=== PATIENT | male | born 1985 | race American Indian/Alaskan Native ===

== ENCOUNTER 2019-11-15 09:08 | Emergency (ER) | payer SELFPAY ==
[2019-11-15 09:29] VITALS: BP 148/81
[2019-11-15] MEDS ORDERED: LIDOCAINE (1%) 10 MG/1 ML VIAL 20 ML MDV INFILTRATI ONE (12:11)
--- NOTE | 2019-11-15 13:06 | Emergency Department Report ---
Abscess Boil HPI - HPI Chief Complaint: Skin/Abscess/Foreign Body Stated Complaint: RT ARM INSECT BITE Time Seen by Provider: 11/15/19 11:21 Duration: 4 Days Location: Upper Extremity Severity: Mild History: Yes Pain, Yes Purulent Drainage, Yes Insect Bite, No Fever, No Numbness, No Foreign Body, No Previous History HPI: 34-year-old -German male patient presents with complaints of right arm insect bite and swelling 4 days. He denies any fever. Has strain yellow pus. Home Medications: Previous Rx's Medication Instructions Recorded Last Taken Type Ibuprofen [Motrin] 600 mg PO Q6H PRN #20 tablet 01/24/14 Unknown Rx Cyclobenzaprine [Flexeril 10mg] 10 mg PO TID PRN #30 tablet 05/27/14 Unknown Rx Ibuprofen [Motrin] 800 mg PO Q8H #30 tablet 05/27/14 Unknown Rx traMADoL [Ultram 50 MG tab] 50 mg PO Q6HR PRN #20 tablet 05/27/14 Unknown Rx Mupirocin [Bactroban 2% OINT] 1 applic TP TID 8 Days #1 tube 11/15/19 Unknown Rx Sulfamethoxazole/Trimethoprim 1 each PO BID 10 Days #20 tablet 11/15/19 Unknown Rx [Bactrim DS TAB] Allergies/Adverse Reactions: Allergies Allergy/AdvReac Type Severity Reaction Status Date / Time No Known Allergies Allergy Unverified 04/09/14 12:07 ED Review of Systems ROS: Stated complaint: RT ARM INSECT BITE Other details as noted in HPI Comment: All other systems reviewed and negative Skin: as per HPI ED Past Medical Hx - Past Medical History Previous Medical History?: No - Surgical History Past Surgical History?: No - Social History Smoking Status: Never Smoker Substance Use Type: None - Medications Home Medications: Home Medications Medication Instructions Recorded Confirmed Last Taken Type Ibuprofen [Motrin] 600 mg PO Q6H PRN #20 tablet 01/24/14 Unknown Rx Cyclobenzaprine [Flexeril 10mg] 10 mg PO TID PRN #30 tablet 05/27/14 Unknown Rx Ibuprofen [Motrin] 800 mg PO Q8H #30 tablet 05/27/14 Unknown Rx traMADoL [Ultram 50 MG tab] 50 mg PO Q6HR PRN #20 tablet 05/27/14 Unknown Rx Mupirocin [Bactroban 2% OINT] 1 applic TP TID 8 Days #1 tube 11/15/19 Unknown Rx Sulfamethoxazole/Trimethoprim 1 each PO BID 10 Days #20 tablet 11/15/19 Unknown Rx [Bactrim DS TAB] ED Abscess Boil Physical Exam - Exam General: Vital signs noted. No distress. Alert and acting appropriately. Front/Back of Body, Lg (Color): 1 - Round swollen fluctuant 3 cm abscess noted with central mild bleeding. No active drainage noted. No surrounding erythema noted. Size: 3 cm Exam: Yes Tenderness, Yes Fluctuance, Yes Normal Neurologic Exam, Yes Normal Circulation, No Surrounding Cellulites/Erythema, No Lymphangitis, No Crepitation, No Heart Murmur I & D Note - I & D Note I & D Note: Area numbed using 2 mL 1% lidocaine without epi. Wound draped in sterile fashion and Betadine used to clean the area. 11 blade used to incise abscess. Now purulent drainage obtained. Sample was taken for wound culture. Minimal bleeding occurred. Sterile dressing was applied to the wound. Patient tolerated procedure well without any immediate complications. ED Course Vital Signs 11/15/19 09:28 Temperature 98.6 F Pulse Rate 78 Respiratory 16 Rate Blood Pressure 148/81 [Right] O2 Sat by Pulse 98 Oximetry Critical care attestation.: If time is entered above; I have spent that time in minutes in the direct care of this critically ill patient, excluding procedure time. ED Medical Decision Making - Medical Decision Making Patient here with right arm abscess for 4 days. Likely due to insect bite. No cellulitis noted on exam. Incision and drainage was performed with mild purulent drainage obtained from wound. Patient tolerated procedure well. V itals are normal. Patient is nontoxic appearing and stable for discharge home. Patient to follow with primary care provider in 3-5 days. Discussed wound care in detail and strict return precautions in detail with patient who verbalizes understanding. ED Disposition Clinical Impression: Abscess Disposition: DC-01 TO HOME OR SELFCARE Is pt being admited?: No Condition: Stable Instructions: Abscess Incision and Drainage (ED), Insect Bite or Sting (ED) Prescriptions: Sulfamethoxazole/Trimethoprim [Bactrim DS TAB] 1 each PO BID 10 Days #20 tablet Mupirocin [Bactroban 2% OINT] 1 applic TP TID 8 Days #1 tube Referrals: PRIMARY CARE,MD [Primary Care Provider] - 3-5 Days
== END 2019-11-15 13:19 | disposition home or self-care (01) ==
LOC: ED 09:08
DX: L02.413 Cutaneous abscess of right upper limb (principal); Z79.899 Other long term (current) drug therapy; W57.XXXA Bitten or stung by nonvenomous insect and other nonvenomous arthropods, initial encounter; Y93.89 Activity, other specified; Y92.89 Other specified places as the place of occurrence of the external cause; Y99.8 Other external cause status